=== PATIENT | male | born 1980 | race Two or more races ===

== ENCOUNTER 2016-03-11 19:39 | Emergency (ER) | payer OTHER ==
[2016-03-11 19:51] VITALS: BP 151/92; PULSE 83; TEMP 97.6; BMI 28.3
--- NOTE | 2016-03-11 20:49 | DIRPT ---
CLINICAL DATA: Low back pain. Injury. EXAM: LUMBAR SPINE - COMPLETE 4+ VIEW COMPARISON: None. FINDINGS: There is no evidence of lumbar spine fracture. Alignment is normal. Intervertebral disc spaces are maintained. IMPRESSION: Negative. Electronically Signed By: Aakash Gilbert M.D. On: 03/11/2016 20:47
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
--- NOTE | 2016-03-11 20:52 | DIRPT ---
CLINICAL DATA: Initial evaluation for acute left arm pain. EXAM: LEFT FOREARM - 2 VIEW COMPARISON: None. FINDINGS: No acute fracture or dislocation. Limited views of the wrist and elbow are unremarkable. Osseous mineralization normal. No focal osseous lesion. No acute soft tissue abnormality. No radiopaque foreign body. IMPRESSION: Negative radiograph of the left forearm. No acute osseous abnormality. Electronically Signed By: Jesus Farrell M.D. On: 03/11/2016 20:50
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
== END 2016-03-11 21:09 | disposition home or self-care (01) ==
LOC: EDMC 19:39
DX: S60.812A Abrasion of left wrist, initial encounter (principal); Y35.813A Legal intervention involving manhandling, suspect injured, initial encounter; F17.200 Nicotine dependence, unspecified, uncomplicated
CPT/HCPCS: 72070; 72110; 99282